=== PATIENT | male | born 1945 | race Caucasian/White ===

== ENCOUNTER → 2020-11-01 | Outpatient (CLI) | payer MEDICARE ==
[~2020-11-01] MED LIST: AMLODIPINE BESY10 MG PO; CHLORTHALIDONE25 MG PO; PRAVASTATIN SOD40 MG PO; [UNRECOGNIZED DRUG - CODE] PO
== END ==
LOC: HEART 5 10-09 13:00
DX: I49.3 Ventricular premature depolarization (principal); R93.1 Abnormal findings on diagnostic imaging of heart and coronary circulation; I08.1 Rheumatic disorders of both mitral and tricuspid valves; I70.0 Atherosclerosis of aorta
CPT/HCPCS: 93306

== ENCOUNTER 2021-08-27 05:54 | Day surgery (SDC) | payer MEDICARE ==
[~2021-08-27] VITALS: Ht 180.3 cm; Wt 116.1 kg
[~2021-08-27 05:54] MED LIST changes: +LOW DOSE ASPIRI81 MG PO
[2021-08-27] MEDS ORDERED: VAZALORE81 MG PO (08:18)
[2021-08-27] MEDS ORDERED: ENDOCET 7.5-321 EACH PO ×2 (08:18→11:29)
[2021-08-27] MEDS ORDERED: ASPIRIN EC81 MG PO (11:29)
[2021-08-28 07:08] LABS: HEMOGLOBIN 14.5 gm/dl (14.0-17.5); RED BLOOD COUNT 4.83 M/UL (4.20-5.50); WHITE BLOOD COUNT 13.9 K/UL (4.5-11.0)
== END 2021-08-28 14:35 | disposition home or self-care (01) ==
LOC: OR 05:54 → EDSTATUS 08:15 → M/S 11:24 → OR 08-28 14:35
PROVIDERS: Orthopaedic Surgery
DX: M17.0 Bilateral primary osteoarthritis of knee (principal); I10 Essential (primary) hypertension; E78.5 Hyperlipidemia, unspecified; K21.9 Gastro-esophageal reflux disease without esophagitis; Z79.82 Long term (current) use of aspirin; Z79.899 Other long term (current) drug therapy; Z79.1 Long term (current) use of non-steroidal anti-inflammatories (NSAID)
CPT/HCPCS: 73560; 80048; 85027; 97110-GP-CQ; 97116-GP-CQ; 97162; 97166; 97530; 97530-GP-CQ; 97535; C1776; J0171; J0690; J1100; J2001; J2405; J2704; J2795; J3370; J7120

== ENCOUNTER → 2022-04-01 | Outpatient (CLI) | payer MEDICARE ==
[~2022-04-01] MED LIST changes: +ASPIRIN EC81 MG PO; +ENDOCET 7.5-321 EACH PO; +VAZALORE81 MG PO
[2022-04-01 14:59] LABS: HEMOGLOBIN 15.5 gm/dl (14.0-17.5); RED BLOOD COUNT 5.17 M/UL (4.20-5.50); WHITE BLOOD COUNT 7.2 K/UL (4.5-11.0)
== END ==
LOC: LAB 14:14
PROVIDERS: Emergency Medicine
DX: R63.1 Polydipsia (principal); R73.9 Hyperglycemia, unspecified; M13.851 Other specified arthritis, right hip; M54.50 Low back pain, unspecified
CPT/HCPCS: 36415; 80053; 83036; 85025; 85652; 86140

== ENCOUNTER → 2022-04-10 | Outpatient (CLI) | payer MEDICARE | LOC: LAB 09:52 | PROVIDERS: Emergency Medicine | DX: R79.89 Other specified abnormal findings of blood chemistry (principal); R73.9 Hyperglycemia, unspecified | CPT/HCPCS: 36415; 80053 ==